=== PATIENT | female | born 1995 | race Caucasian/White ===

== ENCOUNTER 2018-09-20 08:06 | Inpatient (IN) | payer OTHER ==
[~2018-09-20] VITALS: Ht 165.1 cm; Wt 93.0 kg
[2018-09-20 08:47] LABS: CALCIUM 8.7 mg/dL (8.5-10.1); CHLORIDE SERUM 103 mmol/L (98-107); CREATININE SERUM 0.8 mg/dL (0.6-1.0); GFR1 > 60 mL/min; GLUCOSE SERUM 107 mg/dL (74-106); POTASSIUM SERUM 3.9 mmol/L (3.5-5.1); SODIUM SERUM 141 mmol/L (136-145)
[2018-09-20 08:51] LABS: ALBUMIN 3.5 g/dL (3.4-5.0); ALKALINE PHOSPHATASE 91 U/L (46-116); ALT/SGPT 25 U/L (14-59); AST/SGOT 17 U/L (15-37); BILIRUBIN TOTAL 0.43 mg/dL (0.20-1.00); TOTAL PROTEIN, SERUM 7.5 g/dL (6.4-8.2)
[2018-09-20 08:53] LABS: BASOPHIL % 0.3 % (0-2); RED CELL DISTRIBUTION WIDTH 14.4 % (11.5-14.5)
[2018-09-20 08:56] LABS: PLATELET COUNT 476 x10^3mcL (130-400)
[2018-09-20 12:00] VITALS: BP 121/69
[2018-09-20 13:27] VITALS: BP 121/69
[2018-09-20 17:39] LABS: BASOPHIL % 0.2 % (0-2); PLATELET COUNT 399 x10^3mcL (130-400); RED CELL DISTRIBUTION WIDTH 14.3 % (11.5-14.5)
[2018-09-20 17:45] VITALS: BP 118/68
[2018-09-20 20:54] VITALS: BP 121/75
[2018-09-21 05:22] VITALS: BP 139/98
[2018-09-21 06:05] LABS: BASOPHIL % 0.3 % (0-2); PLATELET COUNT 366 x10^3mcL (130-400); RED CELL DISTRIBUTION WIDTH 14.3 % (11.5-14.5)
[2018-09-21 06:21] VITALS: BP 128/76
[2018-09-21 06:32] LABS: CALCIUM 8.1 mg/dL (8.5-10.1); CARBON DIOXIDE 28.2 mmol/L (21-32); CHLORIDE SERUM 106 mmol/L (98-107); CREATININE SERUM 0.6 mg/dL (0.6-1.0); GFR1 > 60 mL/min; GLUCOSE SERUM 114 mg/dL (74-106); MAGNESIUM 1.8 mg/dL (1.8-2.4); POTASSIUM SERUM 3.8 mmol/L (3.5-5.1); SODIUM SERUM 141 mmol/L (136-145)
[2018-09-21 10:00] VITALS: BP 115/65
[2018-09-21 17:11] VITALS: Ht 165.1 cm; Wt 93.0 kg
[2018-09-21 17:15] VITALS: BP 129/105
[2018-09-21 21:20] VITALS: BP 110/64
[2018-09-22 05:43] VITALS: BP 138/81
[2018-09-22 08:05] VITALS: BP 136/84
[2018-09-22 12:07] VITALS: BP 126/81
[2018-09-22] MEDS ORDERED: SEROQUEL50 M1 PO (12:20)
[2018-09-22 12:46] VITALS: BP 126/81
== END 2018-09-22 15:00 | disposition home or self-care (01) | DRG 812 ==
LOC: ED 08:06 → MU 11:33
PROVIDERS: Emergency Medicine; Obstetrics & Gynecology; ADMIT Internal Medicine
DX: T38.4X2A Poisoning by oral contraceptives, intentional self-harm, initial encounter (principal); I95.89 Other hypotension; F12.10 Cannabis abuse, uncomplicated; N93.8 Other specified abnormal uterine and vaginal bleeding; N83.201 Unspecified ovarian cyst, right side; Z59.0 Homelessness; Z87.891 Personal history of nicotine dependence; Y92.89 Other specified places as the place of occurrence of the external cause
CPT/HCPCS: J0696; J2405; J3490; J7030